=== PATIENT | male | born 1985 | race Two or more races ===

== ENCOUNTER 2022-09-14 12:25 | Emergency (ER) | payer OTHER ==
[2022-09-14] MEDS ORDERED: Ondansetron 4 MG/2 ML SDV IVPUSH ONE (13:01)
[2022-09-14] MEDS ORDERED: Sodium Chloride 0.9% 10 ML Syringe FLUSH PRN (13:01)
[2022-09-14] MEDS ORDERED: Sodium Chloride 0.9% 1,000 ML IV ONE (13:01)
== END 2022-09-14 15:30 | disposition home or self-care (01) ==
LOC: JD.ED 12:25
DX: R11.2 Nausea with vomiting, unspecified (principal); R19.7 Diarrhea, unspecified; E78.00 Pure hypercholesterolemia, unspecified; M10.9 Gout, unspecified
CPT/HCPCS: 36415; 80053; 85025; 86140; 96361; 96374; 99284; J2405; J7030